=== PATIENT | male | born 1995 | race Caucasian/White ===

== ENCOUNTER 2024-07-17 18:36 | Emergency (ER) | payer BC ==
[~2024-07-17] VITALS: Ht 193 cm; Wt 95.0 kg
[2024-07-17] MEDS ORDERED: LABETALOL HCL 100 MG/20 ML VIAL IV ONE (18:50)
[2024-07-17 19:22] LABS: BASO% 0.2 % (0-3); EOS% 0.5 % (0-8); HEMATOCRIT 42.7 % (39.0-50.0); HEMOGLOBIN 13.2 g/dl (14.0-18.0); IMMATURE GRANULOCYTES 0.2 % (0.0-5.0); LYMPH% 25.2 % (15-41); MEAN CELL VOLUME 94.5 fL CALC (80.0-100.0); MEAN CORPUSCULAR HGB 29.2 pG CALC (26.0-32.0); MEAN CORPUSCULAR HGB CONC 30.9 g/dL CAL (32.0-36.0); MONO% 6.4 % (2-13); NEUT# 5.44 thou/uL (1.82-7.42); NEUT% 67.5 % (42-76); RED BLOOD COUNT 4.52 mill/uL (4.70-6.10)
[2024-07-17 19:29] LABS: ALBUMIN 4.2 g/dL (3.2-5.0); ALKALINE PHOSPHATASE 49 u/l (38-126); ANION GAP 15 (6-22 (CALC)); BILIRUBIN, TOTAL 0.5 mg/dL (0.2-1.3); BUN 11 mg/dL (9-20); BUN/CREATININE RATIO 13 (12-20 (CALC)); CARBON DIOXIDE 21 mmol/l (22-30); CHLORIDE 108 mmol/l (95-108); CREATININE 0.9 mg/dL (0.7-1.3); ESTIMATED GFR 119 ML/MIN (>=90 (CALC)); POTASSIUM 3.8 mmol/l (3.5-5.1); SGOT/AST 29 u/l (17-59); SODIUM 140 mmol/l (137-146); TOTAL PROTEIN 7.5 g/dL (6.3-8.2)
[2024-07-17] MEDS ORDERED: ONDANSETRON HCl 4 MG/2 ML SDV IV ONE (19:30)
[2024-07-17 22:22] VITALS: BP 131/89
== END 2024-07-17 22:22 | disposition short-term general hospital (02) | DRG 313 ==
LOC: ED 18:36
PROVIDERS: Family Medicine
DX: R07.9 Chest pain, unspecified (principal); Q79.60 Ehlers-Danlos syndrome, unspecified; I47.10 Supraventricular tachycardia, unspecified; I47.20 Ventricular tachycardia, unspecified; R79.89 Other specified abnormal findings of blood chemistry
CPT/HCPCS: J1920; J2405